=== PATIENT | female | born 1955 | race Caucasian/White ===

== ENCOUNTER → 2018-07-09 01:31 | Outpatient (CLI) | payer OTHER, SELFPAY ==
--- NOTE | 2018-07-09 16:28 | DI.REPORT_ITS ---
SYMPTOMS/DIAGNOSIS: SCREENING MAMMOGRAMS: Mammograms were interpreted according to the usual protocol including computer analysis with CAD system, tomosynthesis and C view imaging. The breast tissue is primarily of fatty radiodensity. There is no mass. There are no suspicious calcifications and there has been no significant interval change when compared with prior images. SUMMARY: No evidence of malignancy, category 1. Yearly screening mammography is recommended. Breast density category A. [facility] ASSESSMENT OF FINDINGS: Negative. Category 1. Patient will receive a letter notifying them of these results. BI-RAD category A. The breasts are almost entirely fatty.
== END ==
PROVIDERS: PCP Nurse Practitioner Primary Care; Visit Provider Nurse Practitioner Primary Care
DX: Z12.31 Encounter for screening mammogram for malignant neoplasm of breast (principal)
CPT/HCPCS: 77063; 77067

== ENCOUNTER → 2018-08-29 09:16 | Outpatient (BNVA) | payer OTHER, SELFPAY | PROVIDERS: Visit Provider Surgery | DX: R69 Illness, unspecified (principal) ==

== ENCOUNTER 2018-09-29 06:01 | Day surgery (SDC) | payer OTHER, SELFPAY ==
[2018-09-29 06:12] VITALS: BP 125/67; PULSE 78; RESP 18; TEMP 36.3; O2SAT 95
--- NOTE | 2018-09-29 06:36 | W.COLOREPORT ---
Colonoscopy Report Date of procedure: 09/29/18 Pre-op diagnosis general: Hx of polyps Post-op diagnosis procedure note: other (transverse polyp) Procedure: Colonoscopy with polypectomy by cold forceps Surgeon: Kristine Galindo Anesthesia proc note operative: MAC (Diana Canseco CRNA) Estimated blood loss (mL): 3 Pathology: other (transverse polyp) Complications: None Disposition: same day Indications: Mrs. Maravilla is a pleasant 63-year-old female who was seen in the office for a colonoscopy. She has a history of polyps. Risks, benefits, complications were reviewed with her and she wished to proceed. No guarantees were given or implied. Prep: Miralax/Dulcolax Procedure Start Time: 07:41 Procedure End Time: 08:06 Retraction Time: 15 minutes Findings: One flat polyp in the transverse polyp. Diverticulosis Procedure Description: After informed consent was obtained the patient was taken to the procedure room and placed in a left decubitous position. Monitors were applied and a time out was done. The patients name, date of , procedure, allergies to medications and metal in their body was reviewed. The patient was then sedated. Once sedated and comfortable a rectal exam was done. External exam was normal. Internal exam revealed a normal sphincter tone and no palpable masses. The scope was then introduced and retroflexed. No internal hemorrhoids were identified. The scope was then advanced to the cecum without difficulty. The TI and appendiceal orifice were identified. The prep was adequate. The scope was then slowly retracted over 15 minutes back into the rectum. There was one flat polyp in the transverse colon which was removed with cold forceps. The scope was removed and the patient was woken up and taken back to Same day surgery in stable condition. There were diverticula noted. The patient tolerated the procedure well and there were no immediate complications. Follow up: The patient should follow up in 3-5 years unless they develop changes in bowel habits or other new gastrointestinal complaints.
--- NOTE | 2018-09-29 06:49 | PDOC.DSDIS_ITS ---
Discharge Plan Disposition Patient Disposition: HOME Condition: Good Discharge Details Reason For Visit: SCREENING Attending Provider: Kristine Galindo Primary Care Provider: Iris Zhong Home Meds and New Rx's Prescriptions: Continue metoprolol succinate 50 MG tablet extended release 24 hr 50 mg PO DAILY RF: 0 cholecalciferol (vitamin D3) 1,000 UNIT capsule 1,000 unit PO DAILY RF: 0 fish oil-fat acid comb.[id number] [[place] 3-6-9] 1,200 MG capsule 1,200 mg PO DAILY RF: 0 acetaminophen [Acetaminophen Extra Strength] 500 MG tablet 1,000 mg PO PRN PRNRF: 0 metformin 500 MG tablet 250 mg PO BID RF: 0 meloxicam 15 MG tablet 15 mg PO DAILY RF: 0 gabapentin 300 MG capsule 300 mg PO HS RF: 0 hydrochlorothiazide 25 MG tablet 25 mg PO DAILY RF: 0 mineral oil [Mineral Oil Light] 25 ML oil 25 ml Topical BID PRNRF: 0 Discontinued polyethylene glycol 3350 17 gram powder in packet 255 g PO DAILY Qty: 15 RF: 0 bisacodyl [Dulcolax (bisacodyl)] 5 mg tablet,delayed release (DR/EC) 5 mg PO ONCE Qty: 4 RF: 0 Discharge Instructions Instructions: Colonoscopy (DC), Diverticulosis (DC) Additional Instructions: Findings: 1 polyp Diverticulosis Follow up: 3-5 years New Medications: none Please call if you develop: fevers >101.5 Nausea or Vomiting Abdominal pain that is not transient 1. Because there will be medication in your system for the next 24 hours, you may feel a little sleepy. Your coordination will be affected. Therefore: a. Do not drive or operate dangerous equipment for 24 hours. b. Do not drink alcohol beverages for 24 hours (not even beer). c. Plan to go home and rest for the day. 2. Generally there are no restrictions on your activity after a day or so has gone by, but you may feel a bit fatigued for a few days. 3 After you arrive home you may have a light meal and return to a normal diet as you can tolerate it without feeling sick to your stomach. 4. After surgery, you may feel pain or discomfort. This should be only transient , but if it persists please contact your doctor. 5. If there are any questions regarding the findings of your procedure, please feel free to contact your doctor. 6. If you are unable to contact your doctor with a problem, contact the hospital at [phone]. 7. Continue all your regular medications unless directed otherwise. I understand the above instructions and have no questions. Signature of Patient or Responsible Adult Escort Date/Time Name of Responsible Adult Escort Signature of Nurse Date/Time Stand Alone Forms: Ham Mendoza (MARCELU) Activity:: Activity as Tolerated Diet:: high fiber diet Discharge Orders Discharge Orders: Discharge Order (Routine); Ordered 09/29/18 Ordered By: Kristine Galindo DS: Diagnosis Discharge Diagnosis (1) Hx of adenomatous colonic polyps: Status: Acute (2) Diverticulosis: Status: Acute
[2018-09-29] MEDS: Lactated Ringers 1,000 ML 80 ML IV (06:51)
--- NOTE | 2018-09-29 07:23 | W.PM.HP.N ---
Assessment and Plan (1) Hx of adenomatous colonic polyps: Current visit: No Status: Acute P\\ Colonoscopy under sedation Risks, benefits and complications have been reviewed. Complications include but are not limited to bleeding, pain, perforation, missed small lesion/polyp, sore throat, aspiration and adverse reaction to the medications. Questions were entertained and answered to their satisfaction and they wished to proceed. No guarantees were given or implied. History of Present Illness Narrative: Details: Mrs. Maravilla is a pleasant 63 year old female who had a colonoscopy 3 years ago and was found to have a sessile serrated adenoma. She is here for another screening colonoscopy. She denies any changes in bowel habits, melena or hematochezia. She did have a fissure last November and started to use mineral oil and increased dietary fiber and has been able to heal the fissure without surgery. She has a known murmur. No new Cardiac complaints. She denies chest pain or SOB on exertion. Review of Systems Cardiovascular Reports system reviewed and no additional complaints, except as docu Respiratory Reports system reviewed and no additional complaints, except as docu PFSH Family History Sister Colon polyps Medical History Anal fissure (Resolved) Constipation Diabetes GERD (gastroesophageal reflux disease) HTN (hypertension) Hearing loss Heart murmur Low back pain Obesity Osteoarthritis Sleep apnea Spinal stenosis Squamous cell carcinoma Vitamin D deficiency Social History current occupational status: retired Smoking/Tobacco Use Status: Never alcohol intake: current alcohol intake frequency: a few times a month substance use type: does not use Surgical History H/O colonoscopy (Chronic ~2014) Meds Home Medications Medication Instructions Recorded Confirmed Type cholecalciferol (vitamin D3) 1,000 unit PO DAILY NS 05/22/13 09/29/18 History fish oil-fat acid comb.8-hb137 1,200 mg PO DAILY NS 05/22/13 09/29/18 History [[place] 3-6-9 1,200 Mg Softgel] metoprolol succinate 50 mg PO DAILY tab-cap NS 05/22/13 09/29/18 History acetaminophen [Acetaminophen Extra 1,000 mg PO PRN PRN 03/14/15 09/29/18 History Strength] gabapentin 300 mg PO HS 03/12/17 09/29/18 History hydrochlorothiazide 25 mg PO DAILY tab-cap 03/12/17 09/29/18 History meloxicam 15 mg PO DAILY tab-cap 03/12/17 09/29/18 History metformin 250 mg PO BID tab-cap 03/12/17 09/29/18 History mineral oil [Topical Light Mineral 25 ml TOPICAL BID PRN 10/02/17 09/29/18 History Oil] bisacodyl 5 mg tablet,delayed 5 mg PO ONCE #4 tab 08/29/18 09/29/18 Rx release polyethylene glycol 3350 17 gram 255 g PO DAILY #15 each 08/29/18 09/29/18 Rx oral powder packet Allergies Allergy/AdvReac Type Severity Reaction Status Date / Time adhesive tape AdvReac Mild Skin Rash Unverified 09/29/18 06:23 Horse serum Allergy Severe Anaphylaxsi Uncoded 09/29/18 06:22 s Exam Resp Effort & Inspection: normal respiratory effort Auscultation: clear to auscultation bilaterally Cardio Rate: regular rate Rhythm: regular rhythm Heart Sounds: no click, no gallops, no murmurs and no rubs Results Last Vital Signs Temp 97.3 F L 09/29/18 06:12 Pulse 78 09/29/18 06:12 Resp 18 09/29/18 06:12 BP 125/67 09/29/18 06:12 Pulse Ox 95 09/29/18 06:12
--- NOTE | 2018-09-29 07:57 | BOWEL_PTH ---
PATIENT: Yulissa Maravilla LOC: [facility] U#:[id number] AGE/SX: 63/F ROOM: RE09/29/[address]: Kristine Galindo MD : 1955 BED: DIS: 09/29/2018 SPEC #: [id number] RECD: 09/29/18 12:33 STATUS: MARQUIS REQ #: [id number] LINDA: 09/29/18 07:[address]: Kristine Galindo DEPT: Surgical Specimen RECD BY: Gaby Lazar ENTERED: 09/29/18 12:34 SP TYPE: Bowel OTHR DR: Iris Zhong Tissues: 1 - BIOPSY BOWEL Procedures: GROSS AND MICRO LEVEL 4 Comments: [id number]
[2018-09-29 08:40] VITALS: BP 99/48; PULSE 72; RESP 16; TEMP 36.5; O2SAT 94
== END 2018-09-29 09:05 | disposition home or self-care (01) ==
PROVIDERS: PCP Nurse Practitioner Primary Care; Visit Provider Surgery
PROC: 0DJD8ZZ Inspection of Lower Intestinal Tract, Via Natural or Artificial Opening Endoscopic (ICD-10-PCS; CPT 45378; principal; 2018-09-29 07:30)
DX: Z12.11 Encounter for screening for malignant neoplasm of colon (principal); D12.3 Benign neoplasm of transverse colon; Z86.010 Personal history of colon polyps; G47.33 Obstructive sleep apnea (adult) (pediatric); I10 Essential (primary) hypertension; E11.9 Type 2 diabetes mellitus without complications; Z79.84 Long term (current) use of oral hypoglycemic drugs
CPT/HCPCS: 45380; 88305; NC

== ENCOUNTER 2019-07-06 00:16 | Outpatient (CLI) | payer OTHER, SELFPAY ==
--- NOTE | 2019-07-06 17:11 | DI.MAMMO_ITS ---
SYMPTOM/DIAGNOSIS: SCREENING MAMMOGRAMS: Mammograms were interpreted according to the usual protocol including computer analysis with CAD system, tomosynthesis and C view imaging. Comparison is made with exams from [id number]. The breasts are composed of fatty density tissue, breast density, Category A. No suspicious masses or suspicious microcalcifications are seen. There has been no significant change. IMPRESSION: Category 1, negative mammogram. Yearly screening mammography is recommended. [facility] ASSESSMENT OF FINDINGS: Negative. Category 1. Patient will receive a letter notifying them of these results. BI-RAD category A. The breasts are almost entirely fatty.
== END 2019-07-06 00:36 ==
PROVIDERS: PCP Nurse Practitioner Primary Care; Visit Provider Nurse Practitioner Primary Care
DX: Z12.31 Encounter for screening mammogram for malignant neoplasm of breast (principal)
CPT/HCPCS: 77063; 77067

== ENCOUNTER 2020-02-24 01:30 | Outpatient (CLI) | payer OTHER, SELFPAY ==
--- NOTE | 2020-02-24 | DI.DEXA_ITS ---
EXAM: XR DEXA BONE DENSITY W/WO LUIS FERNANDO CLINICAL HISTORY: SCREENING FOR OSTEOPOROSIS,Z13.820,#[id number] COMPARISON: Prior examination dated 04/15/2003 FINDINGS: Lateral Spine Image: Unremarkable. No compression deformities identified. Posterior spinal surgery a t L4 and L5. Left hip: Total T-Score: 0.8 Total Z-Score: 2.1 T- and Z-scores: Within normal limits. This compares with a total T-score of 0.6 on the prior examina tion. Lumbar Spine: Total T-Score: 1.7 Total Z-Score: 3.5 T- and Z-scores: Within normal limits. This compares with a total T-score of 1.4 on the prior examina tion. IMPRESSION: No evidence of osteoporosis.
== END 2020-02-24 01:50 ==
PROVIDERS: PCP Nurse Practitioner Primary Care; Visit Provider Nurse Practitioner Primary Care
DX: Z13.820 Encounter for screening for osteoporosis (principal)
CPT/HCPCS: 77080

== ENCOUNTER 2020-07-29 04:09 | Outpatient (CLI) | payer OTHER, SELFPAY ==
--- NOTE | 2020-07-29 | DI.MAMMO_ITS ---
EXAM: MG MAMMO SCREENING CLINICAL HISTORY: SCREENING TECHNIQUE: Bilateral full field digital CC and MLO mammographic images were obtained with 3D tomosyn thesis and utilizing computer aided detection (CAD). COMPARISON: Available for comparison. FINDINGS: Masses/Architectural Distortion: None seen. Microcalcifications: No suspicious pleomorphic-type are seen. Skin Thickening/Nipple Retraction: None. IMPRESSION: 1. No significant interval change with no specific features of malignancy noted. 2. Unless there is more urgent need, screening mammography is recommended, as per [place] [employer] guidelines. BI-RADS Category 1 - Negative Breast Density - Category A - Almost entirely fatty A negative radiographic report should not delay biopsy if a dominant or clinically suspicious mass is present. Up to ten percent of cancers are not identified on mammography. A negative report may reinforce clinical impression. Adenosis and dense breasts may obscure an underlying neoplasm. False positive reports average 6 to 10%. Patient will receive a letter notifying them of these results.
== END 2020-07-29 04:29 ==
PROVIDERS: PCP Nurse Practitioner Primary Care; Visit Provider Nurse Practitioner Primary Care
DX: Z12.39 Encounter for other screening for malignant neoplasm of breast (principal)
CPT/HCPCS: 77063; 77067

== ENCOUNTER 2021-09-01 01:32 | Outpatient (CLI) | payer OTHER, SELFPAY ==
[2021-09-01 10:57] LABS: Source Nasal/Nares
[2021-09-01 13:36] LABS: COVID-19 PCR Negative (Negative)
== END 2021-09-01 01:33 | disposition home or self-care (01) ==
LOC: LBO 01:33
PROVIDERS: PCP Nurse Practitioner Primary Care; Visit Provider Surgery
DX: Z20.822 Contact with and (suspected) exposure to COVID-19 (principal); Z01.818 Encounter for other preprocedural examination
CPT/HCPCS: 87635

== ENCOUNTER 2021-09-04 06:08 | Day surgery (SDC) | payer OTHER, SELFPAY ==
--- NOTE | 2021-09-04 06:26 | W.COLOREPORT ---
Colonoscopy Report Date of procedure: 09/04/21 Pre-op diagnosis general: Hx of colon polyps Post-op diagnosis procedure note: same (and mild diverticulosis) Procedure: Colonoscopy with polypectomy Surgeon: Kristine Galindo Anesthesia Type: General:No Airway ([place] CRNA) Estimated blood loss (mL): 3 Pathology: other (cecal polyp, descending polyp) Complications: None Disposition: same day Indications: The patient is here for Colonoscopy pre-op. Her last screening was in 2018, which was sessile serrated adenoma. She has no family history of colon cancer. She has not had any bowel habit changes. -Discussed colonoscopy bowel prep as well as the procedure. Discussed possible complications of the procedure to include bleeding, pain, perforation, missed small lesion/polyp, sore throat, aspiration and adverse reaction to the medications. Questions were answered to patient?s satisfaction. No guarantees were implied or given. Prep: Miralax/Dulcolax Procedure Start Time: 07:28 Procedure End Time: 07:55 Retraction Time: 16 minutes Findings: 2 small polyps mild descending diverticulosis Procedure Description: After informed consent was obtained the patient was taken to the procedure room and placed in a left decubitous position. Monitors were applied and a time out was done. The patients name, date of , procedure, allergies to medications and metal in their body was reviewed. The patient was then sedated. Once sedated and comfortable a rectal exam was done. External exam was normal. Internal exam revealed a normal sphincter tone and no palpable masses. The scope was then introduced and retro-flexed. No internal hemorrhoids, polyps or masses were identified on retro-flexion. The scope was then advanced to the cecum without difficulty. The ileocecal vlave and appendiceal orifice were identified. The prep was good. The scope was then slowly retracted over 16 minutes back into the rectum. Polyps were removed with cold forceps in the cecum and descending colon x2. There was mild descending diverticulosis noted. The scope was removed and the patient was woken up and taken back to Same day surgery in stable condition. The patient tolerated the procedure well and there were no immediate complications. Follow up: The patient should follow up in 3-5 years unless they develop changes in bowel habits or other new gastrointestinal complaints.
--- NOTE | 2021-09-04 06:27 | PDOC.DSDIS_ITS ---
Discharge Plan Disposition Patient Disposition: HOME Condition: Good Discharge Details Reason For Visit: Colonoscopy Attending Provider: Kristine Galindo Primary Care Provider: Iris Zhong Home Meds and New Rx's Prescriptions: Continued cholecalciferol (vitamin D3) 1,000 UNIT capsule 1,000 unit PO DAILY RF: 0 [place] 3-6-9 Triple [place] 1,200 MG capsule 1,200 mg PO DAILY RF: 0 acetaminophen [Acetaminophen Extra Strength] 500 MG tablet 1,000 mg PO PRN PRNRF: 0 metformin 500 MG tablet 250 mg PO BID RF: 0 gabapentin 300 MG capsule 300 mg PO HS RF: 0 hydrochlorothiazide 25 MG tablet 25 mg PO DAILY RF: 0 ibuprofen 800 mg Tablet 800 mg PO PRNRF: 0 melatonin 5 mg Tablet 5 mg RF: 0 Discontinued bisacodyl [Dulcolax (bisacodyl)] 5 mg tablet,delayed release (DR/EC) 5 mg PO ONCE Qty: 4 RF: 0 polyethylene glycol 3350 17 gram/dose powder 238 g PO ONCE Qty: 238 RF: 0 Discharge Instructions Instructions: Diverticulosis (DC) Additional Instructions: Findings: 2 small polyps diverticulosis Follow up: 3-5 years Please call if you develop: fevers >101.5 Nausea or Vomiting Abdominal pain that is not transient Rectal bleeding that is more then a tbsp A hard abdomen and inability to pass gas DAY SURGERY UNIT POST ENDOSCOPY INSTRUCTIONS Instructions for everyone who is given Anesthesia: For your safety, please do the following for the next 24 Hours: a. Do not drive or operate dangerous equipment b. Do not drink alcohol beverages or use any recreational drugs for the first 24 hours or while taking pain medications. The medications in your body may have a reaction that can be dangerous. c. Do not make any important decisions or sign any important papers 1. Generally there are no restrictions on your activity after a day or so has gone by, but you may feel a bit fatigued for a few days. 2. After you arrive home you may have a light meal and return to a normal diet as you can tolerate it without feeling sick to your stomach. 3. After surgery, you may feel pain or discomfort. This should be only transient, but if it persists please contact your doctor. 4. If there are any questions regarding the findings of your procedure, please feel free to contact your doctor. 6. If you are unable to contact your doctor with a problem, contact the [facility] at [phone]. 3. Continue all your regular medications unless directed otherwise. I understand the above instructions and have no questions. Signature of Patient or Responsible Adult Escort Date/Time Name of Responsible Adult Escort Signature of Nurse Date/Time Activity:: Activity as Tolerated Diet:: High Fiber diet Discharge Orders Discharge Orders: Discharge Order (Routine); Ordered 09/04/21 Ordered By: Kristine Galindo
[2021-09-04 06:30] VITALS: BP 114/73; PULSE 89; RESP 18; TEMP 36.5; O2SAT 98
[2021-09-04] MEDS: Lactated Ringers 1,000 ML 80 ML IV (06:50)
--- NOTE | 2021-09-04 07:03 | ANES.PREOP_ITS ---
General Info Date of Service Date Performed: 09/04/21 Height: 5 ft 6 in Weight: 104.9 kg Body Mass Index (BMI): 37.3 Surgical Procedure: Operation Date: 09/04/21 07:35 Proposed Procedures Side Surgeon p Colonoscopy Kristine Galindo MD Meds Allergies and Home Medications Allergies Allergy/AdvReac Type Severity Reaction Status Date / Time adhesive tape AdvReac Mild Skin Rash Unverified 09/04/21 06:34 lisinopril AdvReac Other (See Verified 09/04/21 06:35 Comment) Horse serum Allergy Severe Anaphylaxsi Uncoded 09/04/21 06:34 s Home Medication Medication Instructions Recorded [place] 3-6-9 Triple [place] 1,200 mg PO DAILY NS 05/22/13 cholecalciferol (vitamin D3) 1,000 unit PO DAILY NS 05/22/13 acetaminophen [Acetaminophen Extra 1,000 mg PO PRN PRN 03/14/15 Strength] gabapentin 300 mg PO HS 03/12/17 hydrochlorothiazide 25 mg PO DAILY tab-cap 03/12/17 metformin 250 mg PO BID tab-cap 03/12/17 bisacodyl 5 mg tablet,delayed 5 mg PO ONCE #4 tab 08/17/21 release polyethylene glycol 3350 17 238 g PO ONCE #238 g 08/17/21 gram/dose oral powder ibuprofen 800 mg PO PRN 09/04/21 melatonin 5 mg 09/04/21 Current Visit Medications: Current Medications Generic Name Dose Route Start Last Admin Trade Name Freq PRN Reason Stop Dose Admin Hyoscyamine Sulfate 0.125 mg 09/04/21 06:27 Hyoscyamine 0.125 Mg Sl/Oral/Chew SL DIRECTED PRN Ringer's Solution 1,000 mls @ 80 mls/hr 09/04/21 06:00 IV 10/01/21 23:59 INFUSION [facility] IV Miscellaneous Supplies 1 each 09/04/21 06:00 Iv Access IV 10/01/21 23:59 DIRECTED [facility] Ondansetron HCl 4 mg 09/04/21 06:27 Ondansetron 4 Mg/2 Ml Vial IVP Q4H PRN PRN Nausea / Vomiting Sodium Chloride 0 ml 09/04/21 06:00 Normal Saline Flush 10 Ml Syr IV 10/01/21 23:59 PRN PRN Sodium Chloride 0 ml 09/04/21 06:00 Normal Saline 10 Ml Vial IJ 10/01/21 23:59 DIRECTED PRN Sterile Water 0 ml 09/04/21 06:00 Water,Injection,Sterile 10 Ml Vial IJ 10/01/21 23:59 DIRECTED PRN PFSH Active Problems Active Problems: Problem Status Onset Code Spinal stenosis, lumbar region, with neurogenic claudication M48.06 Hx of adenomatous colonic polyps Z86.010 Diverticulosis K57.90 Undiagnosed cardiac murmurs R01.1 Screening for colon cancer Z12.11 Medical History Medical History (Updated 09/04/21 @ 06:38 by Bekah Truong) Anal fissure Colonoscopy planned (~09/29/18) Constipation Diabetes GERD (gastroesophageal reflux disease) Hearing loss pt. questions this Heart murmur HTN (hypertension) Low back pain Obesity Osteoarthritis Screening for colon cancer Sleep apnea pt .uses bipap Spinal stenosis Squamous cell carcinoma Undiagnosed cardiac murmurs Vitamin D deficiency Surgical History Surgical History H/O colonoscopy (~2014) H/O cone biopsy of cervix History of surgery bilat eye lipd surgery 1995 History of wisdom tooth extraction 1977 Hx of laminectomy L4-L5 Status post laparoscopic Giovanni fundoplication 1998/ hiatal hernia repair Tobacco Smoking/Tobacco Use Status: Never Alcohol Alcohol Intake: current Alcohol intake frequency: a few times a month Alcohol type: wine Substance Use Substance use: Never Substance use type: does not use Details: alcohol: t-60 Vital Signs and Lab Results Vital Signs Most Recent Vital Signs in EMR: Most Recent Vital Signs Temp Pulse Resp BP Pulse Ox 36.5 C 89 18 114/73 98 09/04/21 06:30 09/04/21 06:30 09/04/21 06:30 09/04/21 06:30 09/04/21 06:30 Point of Care Results Point of Care Results: Finger Stick Blood Glucose 114 09/04/21 06:58 Lab Results Blood Type / Crossmatch: No Data to Display Complete Blood Count: No Data to Display Complete Metabolic Panel: No Data to Display Liver Function Panel: No Data to Display Coagulation Panel: No Data to Display Cardiac Panel: No Data to Display Arterial Blood Gas: No Data to Display Venous Blood Gas: No Data to Display Pancreas Panel: No Data to Display Thyroid Panel: No Data to Display Infectious Disease: Coronavirus (COVID-19)(PCR) Negative (Negative) 09/01/21 09:46 09/01/21 Coronavirus 2019 Source Nasal/Nares 09/01/21 09:46 09/01/21 Blood Cultures: No Data to Display Toxicology Panel: No Data to Display Anesthesia Assessment and Plan Anesthesia History Personal History: No History of Anesthesia Complications Family History: No Family History of Anesthesia Complications Exercise Tolerance Exercise Tolerance: Metabolic Equivalents>4 Pertinent Negatives Pertinent Negatives: No Symptoms of GERD (None since lap giovanni in 1998), No Major Cardiovascular Symptoms or Complaints, No Major Pulmonary Symptoms or Complaints and No History of CVA/TIA Cardiac & Pulmonary Exam Cardiac Exam: Normal S1/S2 Heart Sounds Pulmonary Exam: Clear Bilateral Breath Sounds Airway Exam Known Difficult Airway: No Mallampati Class: 2 Mouth Opening: Normal (> 3cm) Thyromental Distance: Greater than 3 cm Neck Range of Motion: Full ROM Neck Circumference: Normal Teeth Condition: Normal Dentition ASA Classification ASA Score: ASA 2 Emergency Case?: No NPO Status NPO Status: NPO Clears >2 hours, Solids >8 hours Anesthesia Plan Resuscitation Status: Full Code Anesthesia Technique: General Anesthesia Airway Planned: Natural Airway Monitors Used: Standard Monitors
[2021-09-04 07:12] VITALS: BMI 37.3
--- NOTE | 2021-09-04 07:40 | BOWEL_PTH ---
PATIENT: Yulissa Maravilla LOC: [facility] U#:[id number] AGE/SX: 66/F ROOM: RE09/04/[address]: Kristine Galindo MD : 1955 BED: DIS: 09/04/2021 SPEC #: [id number] RECD: 09/04/21 12:34 STATUS: MARQUIS REQ #: [id number] LINDA: 09/04/21 07:[address]: Kristine Galindo DEPT: Surgical Specimen RECD BY: Gaby Lazar ENTERED: 09/04/21 12:36 SP TYPE: Bowel OTHR DR: Iris Zhong Tissues: 1 - BIOPSY BOWEL 2 - BIOPSY BOWEL Procedures: GROSS AND MICRO LEVEL 4 Comments: [id number]
[2021-09-04 08:02] VITALS: BP 122/66; PULSE 78; RESP 16; TEMP 36.2; O2SAT 93
--- NOTE | 2021-09-04 08:12 | W.ANESPOSTOP ---
Postoperative Evaluation Date, Time and Location Date Performed: 09/04/21 Time Performed: 08:02 Patient Location: Day Surgery Unit Vital Signs Most Recent Imported Vital Signs: Most Recent Vital Signs Temp Pulse Resp BP Pulse Ox 36.2 C L 78 16 122/66 93 09/04/21 08:02 09/04/21 08:02 09/04/21 08:02 09/04/21 08:02 09/04/21 08:02 Pain Score Most Recent Pain Score: Most Recent Pain Score Pain Level 2 09/04/21 08:02 Assessment Mental Status: Awake (Alert & Oriented to Patient Baseline) Airway and Respiratory Function: Patent airway with normal (patient baseline) respiratory exam Cardiovascular Function: Hemodynamically Stable Hydration Status: Adequately Hydrated Nausea & Vomiting: No Nausea or Vomiting Pain: Pain is tolerable per patient Peripheral Nerve Block: Patient did not receive a nerve block Teaching Patient Teaching: Discussed the importance of using CPAP/BiPAP during any sleep period
[2021-09-04 08:27] VITALS: BP 132/73; PULSE 70; RESP 18; TEMP 36.1; O2SAT 96
== END 2021-09-04 08:50 | disposition home or self-care (01) ==
PROVIDERS: PCP Nurse Practitioner Primary Care; Visit Provider Surgery
PROC: 0DJD8ZZ Inspection of Lower Intestinal Tract, Via Natural or Artificial Opening Endoscopic (ICD-10-PCS; CPT 45378; principal; 2021-09-04 07:30)
DX: Z12.11 Encounter for screening for malignant neoplasm of colon (principal); Z86.010 Personal history of colon polyps; K57.30 Diverticulosis of large intestine without perforation or abscess without bleeding; K63.5 Polyp of colon
CPT/HCPCS: 45380; 88305; J2001

== ENCOUNTER 2021-12-27 08:20 | Outpatient (CLI) | payer MEDICARE, OTHER, SELFPAY ==
--- NOTE | 2021-12-27 08:00 | DI.RAD_ITS ---
Exam(s) XR KNEE RT 3V AP,LAT,BARB EXAM: XR KNEE RT 3V AP,LAT,BARB CLINICAL HISTORY: right knee pain. TECHNIQUE: 2D digital imaging was performed. COMPARISON: No exams were available for comparison FINDINGS: No evidence fracture or joint effusion. There are moderate degenerative changes in the medial compar tment with some joint space narrowing and marginal osteophytes. Lateral compartment appears unremark able. Mild degenerative changes in the patellofemoral compartment. No osseous lesions. Bone densit y appears normal. IMPRESSION: Degenerative changes, most evident in the medial compartment. No joint effusion noted DATA REPOSITORY: RADIATION DOSE DELIVERED:
== END 2021-12-27 08:21 | disposition home or self-care (01) ==
LOC: DIORS 08:20
PROVIDERS: PCP Nurse Practitioner Primary Care; Referring Provider Nurse Practitioner Primary Care; Visit Provider Student in an Organized Health Care Education/Training Program
DX: M25.561 Pain in right knee (principal); M17.11 Unilateral primary osteoarthritis, right knee; M76.31 Iliotibial band syndrome, right leg
CPT/HCPCS: 20610; 73562; 99214; J1040

== ENCOUNTER 2022-01-30 01:22 | Outpatient (CLI) | payer OTHER, SELFPAY ==
--- NOTE | 2022-01-30 | DI.MAMMO_ITS ---
Exam(s) MAMMO SCREENING EXAM: MAMMO SCREENING CLINICAL HISTORY: [id number], SCREENING, Z12.39 TECHNIQUE: Bilateral full field digital CC and MLO mammographic images were obtained with 3D tomosyn thesis and utilizing computer aided detection (CAD). COMPARISON: Available for comparison. FINDINGS: Masses/Architectural Distortion: None seen. Microcalcifications: No suspicious pleomorphic-type are seen. Skin Thickening/Nipple Retraction: None. IMPRESSION: 1. No significant interval change with no specific features of malignancy noted. 2. Unless there is more urgent need, screening mammography is recommended, as per [employer] guidelines. BI-RADS Category 1 - Negative Breast Density - Category A - Almost entirely fatty Breast density category C or D implies that the patient has dense breast tissue. Dense breast tissue is very common and is not abnormal but dense breast tissue can make it harder to find cancer on a ma mmogram. Also, dense breast tissue may increase their breast cancer risk. This information about the result of the mammogram report was provided to the patient to raise their awareness. Use this report when you speak with the patient about their risks for breast cancer, which includes their family hist ory. At that time, you may recommend for more screening tests (Ultrasound or MRI) as they might be us eful based on their risk. A negative radiographic report should not delay biopsy if a dominant or clinically suspicious mass is present. Up to ten percent of cancers are not identified on mammography. A negative report may reinforce clinical impression. Adenosis and dense breasts may obscure an underlying neoplasm. False positive reports average 6 to 10%. Patient will receive a letter notifying them of these results.
== END 2022-01-30 01:42 ==
PROVIDERS: PCP Nurse Practitioner Primary Care; Visit Provider Internal Medicine
DX: Z12.31 Encounter for screening mammogram for malignant neoplasm of breast (principal)
CPT/HCPCS: 77063; 77067

== ENCOUNTER 2023-07-03 02:04 | Outpatient (CLI) | payer OTHER, SELFPAY ==
--- NOTE | 2023-07-03 | DI.MAMMO_ITS ---
Exam(s) MAMMO SCREENING EXAM: MAMMO SCREENING CLINICAL HISTORY: SCREENING, Z12.29, [id number]. TECHNIQUE: Bilateral full field digital CC and MLO mammographic images were obtained with 3D tomosyn thesis and utilizing computer aided detection (CAD). COMPARISON: Prior mammograms were reviewed. FINDINGS: Fibroglandular tissue pattern is again noted to be predominately fatty. There are no new significant radiographic findings in the right breast. Small unchanged benign-appea ring anterior nodules again noted. Tiny posterior microcalcification group is also unchanged. In the left breast there is an oval slightly lobulated noncalcified nodular density measuring approxi mately 9 x 3 millimeters, located approximately 3 cm in from the nipple. It has slightly increased i n size from prior mammograms. There are no malignant-appearing microcalcification groups in this reg ion or elsewhere in either breast There is no significant architectural distortion nor skin thickening-retraction. IMPRESSION: 1. No radiographic evidence of malignancy in the right breast. 2. Left breast lobulated nodular density 3 cm in from the nipple. Spot compression view and ultrasou nd recommended. BI-RADS Category 0 - Assessment Incomplete: Need additional imaging evaluation Breast Density - Category A - Almost entirely fatty Breast density Category C or D implies that the patient has dense breast tissue. Dense breast tissue can make it harder to find cancer on a mammogram. Dense breast tissue is also associated with an incr eased risk of breast cancer. This information about the result of the mammogram report was provided to the patient to raise their awareness. Use this report when you speak with the patient about their risks for breast cancer, which includes their family history. At that time, you may recommend additional screening tests (Ultrasoun d or MRI) as these tests may add significant information. A negative radiographic report should not delay biopsy if a dominant or clinically suspicious mass is present. Up to ten percent of cancers are not identified on mammography. A negative report may reinforce clinical impression. Adenosis and dense breasts may obscure an underlying neoplasm. False positive reports average 6 to 10%. Patient will receive a letter notifying them of these results.
== END 2023-07-03 02:24 ==
PROVIDERS: PCP Nurse Practitioner Primary Care; Visit Provider Physician Assistant
DX: Z12.31 Encounter for screening mammogram for malignant neoplasm of breast (principal)
CPT/HCPCS: 77063; 77067

== ENCOUNTER → 2023-07-09 03:17 | Outpatient (CLI) | payer OTHER, SELFPAY ==
--- NOTE | 2023-07-09 14:22 | DI.MAMMO_ITS ---
Exam(s) MG MAMMO SCREEN CALL BACK UNI US BREAST LT LIMITED EXAM: MG MAMMO SCREEN CALL BACK UNI and U/S breast LT limited CLINICAL HISTORY: F/U MAMMO, LT BREAST LOBULATED NODULAR DENSITY, [id number]. TECHNIQUE: Craniocaudal and mediolateral oblique Full Field Digital Mammography views of the left br east with Computer Aided Diagnosis followed by Tomosynthesis and left breast ultrasound. COMPARISON: Comparison is made with prior examinations. FINDINGS: Mammography/Tomosynthesis: Masses/Architectural Distortion: The lobulated density in the retroareolar region of the left breast has a similar appearance compared to prior examinations. Microcalcifictions: No suspicious pleomorphic-type are seen. Skin Thickening/Nipple Retraction: None. Limited left breast US: Echotexture: Normal appearance of the glandular tissue. Shadowing: No suspicious foci. Cyst: None. Solid lesions: None seen. Ductal dilation: The area of concern corresponds to a duct at the 12 o'clock position of the left lesley ast. No suspicious cystic or solid lesions are seen. IMPRESSION: 1. No evidence of malignancy is noted. 2. Unless there is more urgent need, follow-up screening mammography is recommended, as per [employer] guidelines. 3. The findings were discussed with the patient on the date of the examination. BI-RADS Category 1 - Negative Breast Density - Category A - Almost entirely fatty Breast density Category C or D implies that the patient has dense breast tissue. Dense breast tissue can make it harder to find cancer on a mammogram. Dense breast tissue is also associated with an incr eased risk of breast cancer. This information about the result of the mammogram report was provided to the patient to raise their awareness. Use this report when you speak with the patient about their risks for breast cancer, which includes their family history. At that time, you may recommend additional screening tests (Ultrasoun d or MRI) as these tests may add significant information. A negative radiographic report should not delay biopsy if a dominant or clinically suspicious mass is present. Up to ten percent of cancers are not identified on mammography. A negative report may reinforce clinical impression. Adenosis and dense breasts may obscure an underlying neoplasm. False positive reports average 6 to 10%. Patient will receive a letter notifying them of these results.
== END ==
PROVIDERS: PCP Nurse Practitioner Primary Care; Visit Provider Physician Assistant
DX: Z12.31 Encounter for screening mammogram for malignant neoplasm of breast (principal); R92.8 Other abnormal and inconclusive findings on diagnostic imaging of breast
CPT/HCPCS: 76642; 77063; 77067

== ENCOUNTER 2023-12-03 02:36 | Outpatient (CLI) | payer MEDICARE, OTHER, SELFPAY ==
[2023-12-03 09:11] LABS: Basophils % 1.4; Eosinophils % 1.5; HCT 38.7 % (36.0-46.0); HGB 12.8 g/dL (11.2-15.7); Lymphocytes % 25.6; MCHC 33.1 % (32.0-36.0); MCV 94 fL (80-95); MPV 10.3 fL (8.0-11.0); Monocytes % 6.3; Neutrophils % 64.9; Platelet Count 211 10^3/uL (130-400); RBC 4.13 10^6/uL (3.93-5.22); RDW 12.3 % (11.7-14.6); RDW-SD 42.6 fL; WBC 6.63 10^3/uL (4.4-10.8)
[2023-12-03 09:12] LABS: Abs Immature Grans 0.02 10^3/uL (0.0-0.06); Absolute Basophil Count 0.09 10^3/uL (0.0-0.2); Absolute Monocyte Count 0.42 10^3/uL (0.1-0.8); Immature Grans % 0.3
[2023-12-03 09:34] LABS: ALT 35 U/L (14-59); AST 21 U/L (15-37); Albumin 3.5 g/dL (3.4-5.0); Alkaline Phosphatase 72 U/L (46-116); Anion Gap 7.7 mmol/L (3-11); BUN 31 mg/dL (7-18); Bilirubin, Total 0.4 mg/dL (0.2-1.0); CO2 30.3 mmol/L (21.0-32.0); Calcium 10.1 mg/dL (8.5-10.1); Chloride 101 mmol/L (98-107); Estimated GFR 60.98 (mL/min/1.73m2); FREE T4 0.89 ng/dL (0.76-1.46); Glucose 162 mg/dL (74-106); Potassium 3.9 mmol/L (3.5-5.1); Sodium 139 mmol/L (136-145); TSH 0.92 uIU/mL (0.36-3.74); Total Protein 7.9 g/dL (6.4-8.2)
[2023-12-03 10:13] LABS: Hemoglobin A1C 7.3 % (<5.7)
== END 2023-12-03 02:37 | disposition home or self-care (01) ==
PROVIDERS: PCP Nurse Practitioner Primary Care; Visit Provider Nurse Practitioner
DX: C43.61 Malignant melanoma of right upper limb, including shoulder (principal)
CPT/HCPCS: 36415; 80053; 83036; 84439; 84443; 85025

== ENCOUNTER 2023-12-24 03:34 | Outpatient (CLI) | payer MEDICARE, OTHER, SELFPAY ==
[2023-12-24 09:11] LABS: Abs Immature Grans 0.02 10^3/uL (0.0-0.06); Absolute Basophil Count 0.09 10^3/uL (0.0-0.2); Absolute Lymphocyte Count 2.03 10^3/uL (1.2-3.4); Absolute Monocyte Count 0.61 10^3/uL (0.1-0.8); Absolute Neutrophil Count 5.33 10^3/uL (1.2-6.7); Basophils % 1.1; Eosinophils % 1.2; HCT 40.2 % (36.0-46.0); HGB 13.6 g/dL (11.2-15.7); Immature Grans % 0.2; Lymphocytes % 24.8; MCH 31.3 pg (27.0-33.0); MCHC 33.8 % (32.0-36.0); MCV 93 fL (80-95); MPV 10.4 fL (8.0-11.0); Monocytes % 7.5; Neutrophils % 65.2; Platelet Count 211 10^3/uL (130-400); RBC 4.34 10^6/uL (3.93-5.22); RDW-SD 41.1 fL; WBC 8.18 10^3/uL (4.4-10.8)
[2023-12-24 09:31] LABS: Hemoglobin A1C 6.7 % (<5.7)
[2023-12-24 09:38] LABS: ALT 51 U/L (14-59); AST 33 U/L (15-37); Albumin 3.8 g/dL (3.4-5.0); Alkaline Phosphatase 63 U/L (46-116); Anion Gap 9.7 mmol/L (3-11); BUN 20 mg/dL (7-18); Bilirubin, Total 0.4 mg/dL (0.2-1.0); CO2 30.3 mmol/L (21.0-32.0); CREATININE 1.1 mg/dL (0.55-1.02); Chloride 99 mmol/L (98-107); Estimated GFR 54.39 (mL/min/1.73m2); FREE T4 0.99 ng/dL (0.76-1.46); Glucose 132 mg/dL (74-106); Potassium 3.6 mmol/L (3.5-5.1); Sodium 139 mmol/L (136-145); TSH 0.75 uIU/mL (0.36-3.74); Total Protein 8.2 g/dL (6.4-8.2)
== END 2023-12-24 03:35 | disposition home or self-care (01) ==
PROVIDERS: PCP Nurse Practitioner Primary Care; Visit Provider Nurse Practitioner
DX: C43.61 Malignant melanoma of right upper limb, including shoulder (principal); I10 Essential (primary) hypertension; E11.9 Type 2 diabetes mellitus without complications; Z79.899 Other long term (current) drug therapy
CPT/HCPCS: 36415; 80053; 83036; 84439; 84443; 85025

== ENCOUNTER 2024-02-03 05:14 | Outpatient (CLI) | payer MEDICARE, OTHER, SELFPAY ==
[2024-02-03 09:16] LABS: Abs Immature Grans 0.04 10^3/uL (0.0-0.06); Absolute Basophil Count 0.09 10^3/uL (0.0-0.2); Absolute Eosinophil Count 0.08 10^3/uL (0.0-0.7); Absolute Lymphocyte Count 2.41 10^3/uL (1.2-3.4); Absolute Monocyte Count 0.67 10^3/uL (0.1-0.8); Absolute Neutrophil Count 5.23 10^3/uL (1.2-6.7); Basophils % 1.1; Eosinophils % 0.9; HCT 38.9 % (36.0-46.0); HGB 13.3 g/dL (11.2-15.7); Immature Grans % 0.5; Lymphocytes % 28.3; MCH 31.1 pg (27.0-33.0); MCHC 34.2 % (32.0-36.0); MCV 91 fL (80-95); MPV 10.9 fL (8.0-11.0); Monocytes % 7.9; Neutrophils % 61.3; Platelet Count 225 10^3/uL (130-400); RBC 4.27 10^6/uL (3.93-5.22); RDW 11.9 % (11.7-14.6); RDW-SD 39.4 fL; WBC 8.52 10^3/uL (4.4-10.8)
[2024-02-03 09:40] LABS: Hemoglobin A1C 6.3 % (<5.7)
[2024-02-03 09:55] LABS: ALT 32 U/L (14-59); AST 25 U/L (15-37); Albumin 3.7 g/dL (3.4-5.0); Alkaline Phosphatase 65 U/L (46-116); Anion Gap 9.7 mmol/L (3-11); BUN 17 mg/dL (7-18); Bilirubin, Total 0.5 mg/dL (0.2-1.0); CO2 30.3 mmol/L (21.0-32.0); Calcium 9.8 mg/dL (8.5-10.1); Chloride 98 mmol/L (98-107); Estimated GFR 60.98 (mL/min/1.73m2); FREE T4 1.04 ng/dL (0.76-1.46); Glucose 109 mg/dL (74-106); Potassium 3.6 mmol/L (3.5-5.1); Sodium 138 mmol/L (136-145); TSH 1.32 uIU/Ml (0.36-3.74); Total Protein 7.9 g/dL (6.4-8.2)
== END 2024-02-03 05:15 | disposition home or self-care (01) ==
PROVIDERS: PCP Nurse Practitioner Primary Care; Visit Provider Nurse Practitioner
DX: C43.61 Malignant melanoma of right upper limb, including shoulder (principal)
CPT/HCPCS: 36415; 80053; 83036; 84439; 84443; 85025

== ENCOUNTER 2024-03-16 05:50 | Outpatient (CLI) | payer MEDICARE, OTHER, SELFPAY ==
[2024-03-16 09:24] LABS: Abs Immature Grans 0.03 10^3/uL (0.0-0.06); Absolute Basophil Count 0.14 10^3/uL (0.0-0.2); Absolute Eosinophil Count 1.67 10^3/uL (0.0-0.7); Absolute Lymphocyte Count 2.81 10^3/uL (1.2-3.4); Absolute Monocyte Count 0.75 10^3/uL (0.1-0.8); Absolute Neutrophil Count 5.32 10^3/uL (1.2-6.7); Basophils % 1.3; Eosinophils % 15.6; HCT 41.3 % (36.0-46.0); HGB 13.9 g/dL (11.2-15.7); Immature Grans % 0.3; Lymphocytes % 26.2; MCH 30.9 pg (27.0-33.0); MCHC 33.7 % (32.0-36.0); MCV 92 fL (80-95); MPV 10.8 fL (8.0-11.0); Neutrophils % 49.6; Platelet Count 220 10^3/uL (130-400); RDW 12.3 % (11.7-14.6); RDW-SD 41.1 fL; WBC 10.72 10^3/uL (4.4-10.8)
[2024-03-16 09:59] LABS: ALT 36 U/L (14-59); AST 26 U/L (15-37); Albumin 3.8 g/dL (3.4-5.0); Alkaline Phosphatase 73 U/L (46-116); Anion Gap 9.8 mmol/L (3-11); BUN 22 mg/dL (7-18); Bilirubin, Total 0.4 mg/dL (0.2-1.0); CO2 31.2 mmol/L (21.0-32.0); Calcium 9.9 mg/dL (8.5-10.1); Chloride 100 mmol/L (98-107); Estimated GFR 60.98 (mL/min/1.73m2); FREE T4 0.99 ng/dL (0.76-1.46); Glucose 69 mg/dL (74-106); Potassium 3.7 mmol/L (3.5-5.1); Sodium 141 mmol/L (136-145); TSH 1.29 uIU/Ml (0.36-3.74); Total Protein 8.2 g/dL (6.4-8.2)
== END 2024-03-16 05:51 | disposition home or self-care (01) ==
PROVIDERS: PCP Nurse Practitioner Primary Care; Visit Provider Nurse Practitioner
DX: C43.61 Malignant melanoma of right upper limb, including shoulder (principal)
CPT/HCPCS: 36415; 80053; 83036; 84439; 84443; 85025

== ENCOUNTER 2024-04-10 02:38 | Outpatient (CLI) | payer MEDICARE, OTHER, SELFPAY ==
[2024-04-10 08:35] LABS: Abs Immature Grans 0.02 10^3/uL (0.0-0.06); Absolute Basophil Count 0.11 10^3/uL (0.0-0.2); Absolute Eosinophil Count 0.49 10^3/uL (0.0-0.7); Absolute Lymphocyte Count 2.21 10^3/uL (1.2-3.4); Absolute Monocyte Count 0.57 10^3/uL (0.1-0.8); Absolute Neutrophil Count 4.19 10^3/uL (1.2-6.7); Basophils % 1.4 %; Eosinophils % 6.5 %; HGB 13.3 g/dL (11.2-15.7); Immature Grans % 0.3 %; Lymphocytes % 29.1 %; MCH 31.5 pg (27.0-33.0); MCHC 33.3 % (32.0-36.0); MCV 95 fL (80-95); MPV 10.3 fL (8.0-11.0); Monocytes % 7.5 %; Neutrophils % 55.2 %; Platelet Count 220 10^3/uL (130-400); RBC 4.22 10^6/uL (3.93-5.22); RDW 12.6 % (11.7-14.6); RDW-SD 43.7 fL; WBC 7.59 10^3/uL (4.4-10.8)
== END 2024-04-10 02:39 | disposition home or self-care (01) ==
PROVIDERS: PCP Nurse Practitioner Primary Care; Visit Provider Nurse Practitioner
DX: C43.61 Malignant melanoma of right upper limb, including shoulder (principal)
CPT/HCPCS: 36415; 85025

== ENCOUNTER → 2024-04-28 00:27 | Outpatient (CLI) | payer MEDICARE, OTHER, SELFPAY ==
--- NOTE | 2024-04-28 12:01 | DI.US_ITS ---
Exam(s) US PELVIS TRANSVAGINAL EXAM: US PELVIS TRANSVAGINAL CLINICAL HISTORY: New hypodense extension in endometrial cavity on CT 04/20/24;. TECHNIQUE: Transabdominal and transvaginal pelvic ultrasound was performed using standard protocol. COMPARISON: The CT scan was not made available at this time of interpretation. FINDINGS: UTERUS: Position: Anteverted. Size: 5.4 long by 3.1 AP by 3.8 transverse cm Endometrium: 1.3 cm. The endometrial stripe is thickened and heterogeneous. There are some cystic ch anges seen within the endometrial stripe. No increased blood flow is seen. Myometrium: Unremarkable. Cervix: Unremarkable. OVARIES: Right: 2.4 x 1.5 x 2.1 cm Cyst or mass: No suspicious cystic or solid masses. Left: 1.4 x 0.8 x 1.4 cm Cyst or mass: No suspicious cystic or solid masses. DOPPLER: Color: Symmetric and uniform flow to both ovaries. CUL-DE-SAC: Free fluid: None. Other: None. IMPRESSION: 1. Heterogeneous 1.3 cm endometrium. Neoplasm should be excluded. Gynecologic consult is recommende d. 2. Unremarkable bilateral ovaries. DATA REPOSITORY:
== END ==
PROVIDERS: PCP Nurse Practitioner Primary Care; Visit Provider Nurse Practitioner
DX: C76.41 Malignant neoplasm of right upper limb (principal)
CPT/HCPCS: 76830; 76856

== ENCOUNTER 2024-05-14 16:04 | Outpatient (REF) | payer MEDICARE, OTHER, SELFPAY ==
--- NOTE | 2024-05-14 15:35 | ENDOMET_PTH ---
PATIENT: Yulissa Maravilla LOC: [facility] U#:[id number] AGE/SX: 68/F ROOM: RE05/14/[address]: Selena Cruz MD : [id number] BED: DIS: 05/14/2024 SPEC #: [id number] RECD: 05/14/24 17:52 STATUS: MARQUIS REFelicia #: [id number] LINDA: 05/14/24 15:[address]: Selena Cruz DEPT: Surgical Specimen RECD BY: Gaby Lazar ENTERED: 05/14/24 17:53 SP TYPE: Endomet OTHR DR: Iris Zhong Tissues: 1 - ENDOMETRIUM BX/KEVON Procedures: GROSS AND MICRO LEVEL 4 Comments: [id number]
== END 2024-05-14 16:05 | disposition home or self-care (01) ==
LOC: LBN 16:04
PROVIDERS: PCP Nurse Practitioner Primary Care; Visit Provider Obstetrics & Gynecology
DX: N85.01 Benign endometrial hyperplasia (principal)
CPT/HCPCS: 88305

== ENCOUNTER 2024-06-01 04:22 | Outpatient (CLI) | payer MEDICARE, OTHER, SELFPAY ==
[2024-06-01 08:10] LABS: Abs Immature Grans 0.02 10^3/uL (0.0-0.06); Absolute Basophil Count 0.07 10^3/uL (0.0-0.2); Absolute Eosinophil Count 0.09 10^3/uL (0.0-0.7); Absolute Lymphocyte Count 2.01 10^3/uL (1.2-3.4); Absolute Monocyte Count 0.55 10^3/uL (0.1-0.8); Absolute Neutrophil Count 4.49 10^3/uL (1.2-6.7); Eosinophils % 1.2 %; HGB 12.6 g/dL (11.2-15.7); Immature Grans % 0.3 %; Lymphocytes % 27.8 %; MCH 31.3 pg (27.0-33.0); MCHC 33.2 % (32.0-36.0); MCV 94 fL (80-95); MPV 10.6 fL (8.0-11.0); Monocytes % 7.6 %; Neutrophils % 62.1 %; Platelet Count 199 10^3/uL (130-400); RBC 4.03 10^6/uL (3.93-5.22); RDW 12.3 % (11.7-14.6); RDW-SD 43.1 fL; WBC 7.23 10^3/uL (4.4-10.8)
[2024-06-01 08:34] LABS: ALT 29 U/L (14-59); AST 25 U/L (15-37); Albumin 3.5 g/dL (3.4-5.0); Alkaline Phosphatase 63 U/L (46-116); Anion Gap 7.9 mmol/L (3-11); BUN 13 mg/dL (7-18); Bilirubin, Total 0.39 mg/dL (0.2-1.0); CO2 29.1 mmol/L (21.0-32.0); Calcium 9.2 mg/dL (8.5-10.1); Chloride 103 mmol/L (98-107); Estimated GFR 60.98 (mL/min/1.73m2); FREE T4 0.91 ng/dL (0.76-1.46); Glucose 98 mg/dL (74-106); Potassium 3.9 mmol/L (3.5-5.1); Sodium 140 mmol/L (136-145); TSH 1.03 uIU/Ml (0.36-3.74); Total Protein 7.5 g/dL (6.4-8.2)
== END 2024-06-01 04:23 | disposition home or self-care (01) ==
PROVIDERS: PCP Nurse Practitioner Primary Care; Visit Provider Nurse Practitioner
DX: C43.61 Malignant melanoma of right upper limb, including shoulder (principal)
CPT/HCPCS: 36415; 80053; 84439; 84443; 85025

== ENCOUNTER 2024-07-13 02:41 | Outpatient (CLI) | payer OTHER, SELFPAY ==
--- NOTE | 2024-07-13 | DI.MAMMO_ITS ---
Exam(s) MAMMO SCREENING EXAM: MAMMO SCREENING CLINICAL HISTORY: SCREENING, [id number] TECHNIQUE: Bilateral full field digital CC and MLO mammographic images were obtained with 3D tomosyn thesis and utilizing computer aided detection (CAD). COMPARISON: Available for comparison. FINDINGS: Masses/Architectural Distortion: None seen. Microcalcifications: No suspicious pleomorphic-type are seen. Skin Thickening/Nipple Retraction: None. IMPRESSION: 1. No significant interval change with no specific features of malignancy noted. 2. Unless there is more urgent need, screening mammography is recommended, as per [employer] guidelines. BI-RADS Category 1 - Negative Breast Density - Category A - Almost entirely fatty Breast density category C or D implies that the patient has dense breast tissue. Dense breast tissue is very common and is not abnormal but dense breast tissue can make it harder to find cancer on a ma mmogram. Also, dense breast tissue may increase their breast cancer risk. This information about the result of the mammogram report was provided to the patient to raise their awareness. Use this report when you speak with the patient about their risks for breast cancer, which includes their family hist ory. At that time, you may recommend for more screening tests (Ultrasound or MRI) as they might be us eful based on their risk. A negative radiographic report should not delay biopsy if a dominant or clinically suspicious mass is present. Up to ten percent of cancers are not identified on mammography. A negative report may reinforce clinical impression. Adenosis and dense breasts may obscure an underlying neoplasm. False positive reports average 6 to 10%. Patient will receive a letter notifying them of these results.
--- NOTE | 2024-07-13 | DI.DEXA_ITS ---
Exam(s) XR DEXA BONE DENSITY W/WO LUIS FERNANDO EXAM: XR DEXA BONE DENSITY W/WO LUIS FERNANDO CLINICAL HISTORY: SCREEN FOR OSTEOPOROSIS, Z13.820,[id number] TECHNIQUE: COMPARISON: CR XR DEXA BONE DENSITY W/WO LUIS FERNANDO from 02/24/2020 FINDINGS: Lateral Spine Image: Posterior spinal rods at L4 and L5 are again seen. Left hip: Total T-Score: 1.0. This compares to 0.8 on the prior examination. Total Z-Score: 2.5 T- and Z-scores: Within normal limits. Lumbar Spine: Total T-Score: 2.6. This compares to 1.7 on the prior examination. Total Z-Score: 4.6 T- and Z-scores: Within normal limits. IMPRESSION: No evidence of osteoporosis.
== END 2024-07-13 03:01 ==
PROVIDERS: PCP Nurse Practitioner Primary Care; Visit Provider Physician Assistant
DX: Z12.31 Encounter for screening mammogram for malignant neoplasm of breast (principal); Z13.820 Encounter for screening for osteoporosis
CPT/HCPCS: 77063; 77067; 77080

== ENCOUNTER 2024-08-31 03:00 | Outpatient (CLI) | payer MEDICARE, OTHER, SELFPAY ==
[2024-08-31 08:54] LABS: Abs Immature Grans 0.02 10^3/uL (0.0-0.06); Absolute Basophil Count 0.06 10^3/uL (0.0-0.2); Absolute Eosinophil Count 0.09 10^3/uL (0.0-0.7); Absolute Lymphocyte Count 1.56 10^3/uL (1.2-3.4); Absolute Monocyte Count 0.45 10^3/uL (0.1-0.8); Basophils % 0.9 %; Eosinophils % 1.3 %; HCT 36.5 % (36.0-46.0); HGB 12.1 g/dL (11.2-15.7); Immature Grans % 0.3 %; Lymphocytes % 22.7 %; MCH 31.2 pg (27.0-33.0); MCHC 33.2 % (32.0-36.0); MCV 94 fL (80-95); MPV 11.3 fL (8.0-11.0); Monocytes % 6.5 %; Neutrophils % 68.3 %; Platelet Count 172 10^3/uL (130-400); RBC 3.88 10^6/uL (3.93-5.22); RDW 12.8 % (11.7-14.6); RDW-SD 44.1 fL; WBC 6.88 10^3/uL (4.4-10.8)
[2024-08-31 09:20] LABS: ALT 24 U/L (14-59); AST 20 U/L (15-37); Albumin 3.1 g/dL (3.4-5.0); Alkaline Phosphatase 69 U/L (46-116); BUN 23 mg/dL (7-18); Bilirubin, Total 0.55 mg/dL (0.2-1.0); Calcium 9.3 mg/dL (8.5-10.1); Chloride 101 mmol/L (98-107); Estimated GFR 60.61 (mL/min/1.73m2); FREE T4 0.84 ng/dL (0.76-1.46); Glucose 129 mg/dL (74-106); Potassium 3.8 mmol/L (3.5-5.1); Sodium 136 mmol/L (136-145); TSH 1.11 uIU/Ml (0.36-3.74); Total Protein 7.3 g/dL (6.4-8.2)
== END 2024-08-31 03:01 | disposition home or self-care (01) ==
PROVIDERS: PCP Nurse Practitioner Primary Care; Visit Provider Nurse Practitioner
DX: C43.61 Malignant melanoma of right upper limb, including shoulder (principal)
CPT/HCPCS: 36415; 80053; 84439; 84443; 85025

== ENCOUNTER 2024-09-25 15:33 | Emergency (ER) | payer MEDICARE, OTHER, SELFPAY ==
[2024-09-25 15:56] VITALS: BP 152/82; PULSE 85; RESP 14; TEMP 36.6; O2SAT 98
--- NOTE | 2024-09-25 16:00 | DI.RAD_ITS ---
Exam(s) XR LUMBAR SPINE COMPLETE EXAM: XR LUMBAR SPINE COMPLETE CLINICAL HISTORY: Back pain. TECHNIQUE: 2D digital imaging was performed of the lumbar spine. Six images were obtained. AP, lat eral, right oblique, left oblique and L5-S1 spot views were obtained. COMPARISON: CR SPINE LUMBOSACRAL MIN 2 VIEWS from 07/16/2012 CR XR DEXA BONE DENSITY W/WO LUIS FERNANDO from 07/13/2024 FINDINGS: BONES: No fracture or destructive lesion. Endplate osteophytes are seen at multiple levels of the lum bar spine, particularly at L3-L4. Degenerative changes of the facets are seen at multiple levels of t he lumbar spine. Posterior spinal surgery is seen at L4-L5. DISKS: There is disc space narrowing at T12-L1 and L5-S1. ALIGNMENT: Grade 1 anterolisthesis of L4 on L5 is present. SOFT TISSUE: Normal. IMPRESSION: Moderate degenerative changes are seen in the lumbar spine. No acute fracture or subluxation. DATA REPOSITORY: RADIATION DOSE DELIVERED:
--- NOTE | 2024-09-25 16:16 | ED.GENADUL_ITS ---
Discharge Plan Disposition Patient Disposition: Home Condition: Stable Discharge Details Clinical Impression: Lumbago Primary Care Provider: Karlee Osborne ED Provider: Quiana Mccain Home Meds and New Rx's Prescriptions: New prednisone 50 mg tablet 50 mg PO DAILY 5 Days Qty: 5 0RF Rx Instructions: Take 1 tablet daily for the next 5 days lidocaine 5 % adhesive patch,medicated 1 patch topical DAILY Qty: 15 0RF Rx Instructions: leave on most painful area for up to 12 hrs cyclobenzaprine 10 mg tablet 10 mg PO TID PRN (Reason: muscle spasm) Qty: 10 0RF No Action acetaminophen 650 mg tablet extended release 1,300 mg PO Q12H PRN loratadine [Allergy Relief (loratadine)] 10 mg tablet 10 mg PO DAILY PRN magnesium 200 mg tablet 400 mg PO DAILY loperamide-simethicone 2-125 mg tablet 1 tab PO Q2H PRN Rx Instructions: do not exceed 4 tabs in 24 hrs Pepto-Bismol 262 mg tablet 524 mg PO Q1H PRN Rx Instructions: do not exceed 8 doses in a 24 hour period senna 8.6 mg capsule 8.6 mg PO BID Patient Comments: 05/14/24- pt takes 1-2 caps PRN pembrolizumab 25 mg/mL solution 200 mg IV Q3W Rx Instructions: administer over 30 mins pembrolizumab 50 mg recon soln 400 mg IV Q6W Patient Comments: 05/14/24- Pt reports taking through 09/2024. First 4 doses 200 mg q3 weeks no side effects > increased dose and interval. Prescribed by Sandra Casas MD, [facility] On[facility]. Rx Instructions: administer over 30 mins cholecalciferol (vitamin D3) 1,000 UNIT capsule 1,000 unit PO DAILY Marsteller 3-6-9 Triple Marsteller 1,200 MG capsule 1,200 mg PO DAILY metformin 500 MG tablet 250 mg PO BID gabapentin 300 MG capsule 300 mg PO HS hydrochlorothiazide 25 MG tablet 25 mg PO DAILY ibuprofen 800 mg Tablet 800 mg PO Q8H PRN melatonin 5 mg Tablet 5 mg PO HS Discharge Instructions Instructions: Managing acute pain at home, Low Back Pain ED Additional Instructions: Please take the medications as prescribed. Alternate ice and heat. Consider chiropractor or massage. X-rays show degenerative changes, hardware is intact, no acute fracture or broken bones or dislocation noted of the spine. Follow up with primary care provider in 3-5 days. Return to ED sooner if any worsening pain, loss of bowel or bladder control, numbness or tingling in your groin or rectal area or concerns. Please take Tylenol or Ibuprofen with food every 4-6 hours as needed for pain and swelling. Referrals: Karlee Osborne [Primary Care Provider] - 2 weeks Discharge Data Discharge Date/Time-TO BE ENTERED AT DEPARTURE: 09/25/24 17:35 HPI General Mode of arrival: ambulatory . Date/Time Provider Initiated Documentation: 09/25/24 15:58 . Limitations to Documentation: no limitations . Information obtained by: patient, RN notes reviewed and old records reviewed . HPI Narrative: 69 year old female presents to the ER with cc of right lower lumbar pain and spasm x 2 days. Patient states she has been gardening and lifting and now pain worse. Denies saddle anesthesia, loss of bowel or bladder control, radiation of pain or other associated symptoms. Does have a history of Lumbar spine surgery in [address] Has been taking Tylenol and Ibuprofen with some relief. Related Data Home Medications ?Medication ?Instructions ?Recorded ?Confirmed Marsteller 3-6-9 Triple Marsteller 1,200 mg 1,200 mg PO DAILY 05/22/13 09/25/24 (400 [id number]) capsule (fish oil-fat acid [id number]) cholecalciferol (vitamin D3) 25 1,000 unit PO DAILY 05/22/13 09/25/24 mcg (1,000 unit) capsule gabapentin 300 mg capsule 300 mg PO HS 03/12/17 09/25/24 hydrochlorothiazide 25 mg tablet 25 mg PO DAILY 03/12/17 09/25/24 metformin 500 mg tablet 250 mg PO BID 03/12/17 09/25/24 ibuprofen 800 mg tablet 800 mg PO Q8H PRN 09/04/21 09/25/24 melatonin 5 mg tablet 5 mg PO HS 09/04/21 09/25/24 acetaminophen 650 mg 1,300 mg PO Q12H PRN 05/14/24 09/25/24 tablet,extended release bismuth subsalicylate 262 mg 524 mg PO Q1H PRN 05/14/24 09/25/24 tablet (Pepto-Bismol) loperamide 2 mg-simethicone 125 mg 1 tab PO Q2H PRN 05/14/24 09/25/24 tablet loratadine 10 mg tablet (Allergy 10 mg PO DAILY PRN 05/14/24 09/25/24 Relief (loratadine)) magnesium 200 mg tablet 400 mg PO DAILY 05/14/24 09/25/24 pembrolizumab 25 mg/mL intravenous 200 mg IV Q3W 05/14/24 05/14/24 solution pembrolizumab 50 mg intravenous 400 mg IV Q6W 05/14/24 05/14/24 solution sennosides 8.6 mg capsule (senna) 8.6 mg PO BID 05/14/24 09/25/24 cyclobenzaprine 10 mg tablet 10 mg PO TID PRN muscle spasm #10 09/25/24 tabs lidocaine 5 % topical patch 1 patch topical DAILY #15 ea 09/25/24 prednisone 50 mg tablet 50 mg PO DAILY Inflammation 5 days 09/25/24 #5 tabs Previous Rx's ?Medication ?Instructions ?Recorded cyclobenzaprine 10 mg tablet 10 mg PO TID PRN muscle spasm #10 09/25/24 tabs lidocaine 5 % topical patch 1 patch topical DAILY #15 ea 09/25/24 prednisone 50 mg tablet 50 mg PO DAILY Inflammation 5 days 09/25/24 #5 tabs Allergies Allergy/AdvReac Type Severity Reaction Status Date / Time adhesive tape AdvReac Mild Skin Rash Unverified 09/25/24 15:58 lisinopril AdvReac Other (See Verified 09/25/24 15:58 Comment) Horse serum Allergy Severe Anaphylaxsi Uncoded 09/25/24 15:58 s General Stated Complaint: Nk/Back Pain DEEP: 4 Review of Systems Genitourinary Genitourinary: Denies dyspareunia and Denies urinary incontinence Musculoskeletal Musculoskeletal: Reports as per HPI, Reports back pain, Denies numbness, Denies radiating pain into limb, Reports stiffness and Denies tingling Neurologic Neurologic: Denies numbness and Denies tingling Exam Narrative Exam Narrative: Constitutional: Alert and oriented x3. Appears stated age. Normal body habitus. Head: Normocephalic, no trauma. Resp: Lungs clear to auscultation bilaterally, no wheezes, rales, or rhonchi. Abdomen: Soft, non-distended, Normoactive bowel sounds all 4 quads. Musculoskeletal: Stiff gait, does have some right lower paraspinous tenderness with palpation.. Skin: No suspicious rashes or lesions. Capillary refill less than 2 sec. Neurologic: Cranial nerves II-XII intact. Alert and oriented x 3. Motor: No deficits noted. Sensory: Intact bilaterally all 4 extremities. Hematologic/Lymphatic: No ecchymosis, no lymphadenopathy. Back/Spine/Pelvis Thoracic/Lumbar Spine: paraspinal tenderness (Right) Course Vital Signs Vital signs: Vital Signs Temperature 36.6 C 09/25/24 15:56 Pulse 85 09/25/24 15:56 Respiratory Rate 14 09/25/24 15:56 Blood Pressure 152/82 H 09/25/24 15:56 Pulse Oximetry 98 09/25/24 15:56 Temperature 36.6 C 09/25/24 15:56 Temperature Source Skin 09/25/24 15:56 Pulse 85 09/25/24 15:56 Respiratory Rate 14 09/25/24 15:56 Blood Pressure 152/82 H 09/25/24 15:56 Blood Pressure Position Sitting 09/25/24 15:56 Pulse Oximetry 98 09/25/24 15:56 Oxygen Delivery Method Room Air 09/25/24 15:56 Oxygen Flow Rate 0 09/25/24 15:56 Pain Level 8 09/25/24 15:56 Medical Decision Making 69 year old female presents to the ER with cc of right lower lumbar pain and spasm x 2 days. Patient states she has been gardening and lifting and now pain worse. Denies saddle anesthesia, loss of bowel or bladder control, radiation of pain or other associated symptoms. Does have a history of Lumbar spine surgery in [address] Has been taking Tylenol and Ibuprofen with some relief. XR L spine ordered, Lidocaine patch, Prednisone and Flexeril. X-ray shows moderate degenerative changes in the lumbar spine, no acute fracture or subluxation. There is some disc space narrowing. And grade 1 anterior listhesis on L4 and L5 is present. Will discharge patient home with prednisone, lidocaine patches and Flexeril. No signs of cauda equina or discopathy or any serious concerns at this time I do feel the patient is appropriate to be discharged home. This text was generated using [employer] system, please disregard any oddities of phrase or misspellings. Quality:SDOH Health Related Social Needs: No Data to Display PFSH All Active Problems (Updated 09/25/24 @ 17:21 by Quiana Mccain NP) Lumbago (Acute) Thickened endometrium (Acute) Iliotibial band syndrome affecting right lower leg (Acute) Osteoarthritis of right knee (Acute) Depo Medrol--12/27/21 Spinal stenosis, lumbar region, with neurogenic claudication (Chronic) Diverticulosis (Acute) Undiagnosed cardiac murmurs (Acute) Medical History Metastatic melanoma July- august of 2023, removal at [facility] on right forarm. Also had basal cell CA and Squamous cell CA with single right axillary node involvement (stage 3C) Hx of adenomatous colonic polyps Anal fissure Obesity Vitamin D deficiency Constipation HTN (hypertension) GERD (gastroesophageal reflux disease) Spinal stenosis Osteoarthritis Heart murmur Squamous cell carcinoma Hearing loss pt. questions this Sleep apnea pt .uses bipap Low back pain Surgical History H/O blepharoplasty pt reports upper lid in 04/1996 History of colonoscopy (~09/2021) Hx of laminectomy L4-L5 History of wisdom tooth extraction 1977 History of surgery bilat eye lipd surgery 1995 H/O cone biopsy of cervix x2 in the 70/80s Status post laparoscopic Erika fundoplication 1998/ hiatal hernia repair H/O colonoscopy (~2014) Family History Sister Colon polyps Osteoporosis Mother Hypertension Heart disease Graves disease Osteoporosis Paternal Grandfather Diabetes Brother Hyperlipidemia Hypertension Paternal Uncle Stroke Paternal Aunt Stroke Social History Smoking/Tobacco Use Status: Never Smoking risk assessment performed?: Yes Alcohol Intake: current Alcohol Intake frequency: a few times a month Alcohol type: wine Drug use: Never Substance use type: does not use Details: alcohol: t-60 Do you feel safe at home: Yes Do you feel safe in your relationship?: Yes
[2024-09-25] MEDS: predniSONE 20 MG TAB 60 MG PO (17:34)
[2024-09-25] MEDS: Lidocaine 5% Patch 1 PATCH TP (17:34)
[2024-09-25] MEDS: Cyclobenzaprine 10 MG TAB PO (17:34)
== END 2024-09-25 17:35 | disposition home or self-care (01) ==
PROVIDERS: Emergency Provider Registered Nurse Emergency; PCP Physician Assistant
DX: M54.50 Low back pain, unspecified (principal); I10 Essential (primary) hypertension
CPT/HCPCS: 99283; 72110; J7512

== ENCOUNTER 2025-05-31 01:24 | Outpatient (CLI) | payer MEDICARE, OTHER, SELFPAY ==
--- NOTE | 2025-05-31 06:45 | DI.US_ITS ---
Exam(s) US PELVIS TRANSVAGINAL EXAM: US PELVIS TRANSVAGINAL CLINICAL HISTORY: abnormal finding on imaging,thickened endometrium,r93.89 TECHNIQUE: Transabdominal and transvaginal imaging was performed using standard protocol. COMPARISON: CT CT CHEST ABD PELVIS W LEB from 04/20/2024 FINDINGS: Transabdominal images are limited by patient body habitus and lack of urinary bladder distention. UTERUS: Anteverted. 4.8 x 3.1 x 4.1 cm Endometrium: 10-12 mm , thickened and heterogeneous. Myometrium: Unremarkable. Cervix: Unremarkable. OVARIES: Right: Cyst or mass: None. Left: Cyst or mass: None. DOPPLER: Color: Symmetric and uniform flow to both ovaries. No hyperemia. CUL-DE-SAC: Free fluid: None. IMPRESSION: 1. Thickened, heterogeneous endometrium. 2. Unremarkable bilateral ovaries. DATA REPOSITORY:
== END 2025-05-31 01:44 ==
LOC: DI 01:24
PROVIDERS: PCP Physician Assistant; Visit Provider Obstetrics & Gynecology
DX: R93.89 Abnormal findings on diagnostic imaging of other specified body structures (principal)
CPT/HCPCS: 76830; 76856

== ENCOUNTER 2025-07-15 01:42 | Outpatient (CLI) | payer OTHER, SELFPAY ==
--- NOTE | 2025-07-15 | DI.MAMMO_ITS ---
Exam(s) MAMMO SCREENING EXAM: MAMMO SCREENING CLINICAL HISTORY: Screening, Z12.31; auth #[id number] TECHNIQUE: Mammograms were interpreted according to the usual protocol including computer analysis with CAD system, tomosynthesis and C-view imaging. COMPARISON: 2014 through 2023 FINDINGS: The breasts are composed of mainly fatty density , Breast Density category A. No suspicious masses or suspicious microcalcifications are seen. No skin thickening or abnormal axillary lymph nodes are seen. There has been no significant change from prior exams. IMPRESSION: BI-RADS Category 1, Negative mammogram Yearly screening mammography is recommended. Breast Density- Category A - The breast are almost entirely fatty. Breast density Category C or D implies that the patient has dense breast tissue. Dense breast tissue can make it harder to find cancer on a mammogram. Dense breast tissue is also associated with an increased risk of breast cancer. This information about the result of the mammogram report was provided to the patient to raise their awareness. Use this report when you speak with the patient about their risks for breast cancer, which includes their family history. At that time, you may recommend additional screening tests (Ultrasound or MRI) as these tests may add significant information. A negative radiographic report should not delay biopsy if a dominant or clinically suspicious mass is present. Up to ten percent of cancers are not identified on mammography. A negative report may reinforce clinical impression. Adenosis and dense breasts may obscure an underlying neoplasm. False positive reports average 6 to 10%. Patient will receive a letter notifying them of these results.
== END 2025-07-15 02:02 ==
LOC: DI 01:43
PROVIDERS: PCP Physician Assistant; Visit Provider Physician Assistant
DX: Z12.31 Encounter for screening mammogram for malignant neoplasm of breast (principal); R92.313 Mammographic fatty tissue density, bilateral breasts
CPT/HCPCS: 77063; 77067

== ENCOUNTER 2025-07-28 07:06 | Day surgery (SDC) | payer MEDICARE, OTHER, SELFPAY ==
[2025-07-28 07:28] VITALS: BP 149/64; PULSE 75; RESP 14; TEMP 36.4; O2SAT 97
--- NOTE | 2025-07-28 07:41 | W.ANESPRE ---
General Info Date of Service Date Performed: 07/28/25 Height: 5 ft 6 in Weight: 108.9 kg Body Mass Index (BMI): 38.7 Surgical Procedure: Operation Date: 07/28/25 08:40 Proposed Procedure Side Surgeon p Dilation & Curettage with Hysteroscopy Selena Cruz MD Meds Allergies and Home Medications Allergies Allergy/AdvReac Type Severity Reaction Status Date / Time adhesive tape AdvReac Mild Skin Rash Verified 07/28/25 07:35 lisinopril AdvReac Other (See Verified 07/28/25 07:35 Comment) Horse serum Allergy Severe Anaphylaxsi Uncoded 07/28/25 07:35 s Home Medication ?Medication ?Instructions ?Recorded Wallace 3-6-9 Triple Wallace 1,200 mg 1,200 mg PO DAILY 05/22/13 (400 [id number]) capsule (fish oil-fat acid [id number]) cholecalciferol (vitamin D3) 25 1,000 unit PO DAILY 05/22/13 mcg (1,000 unit) capsule gabapentin 300 mg capsule 300 mg PO HS 03/12/17 hydrochlorothiazide 25 mg tablet 25 mg PO DAILY 03/12/17 ibuprofen 800 mg tablet 800 mg PO Q8H PRN 09/04/21 acetaminophen 650 mg 1,300 mg PO Q12H PRN 05/14/24 tablet,extended release magnesium 200 mg tablet 400 mg PO DAILY 05/14/24 diclofenac sodium 1 % topical gel 1 applic topical DIRECTED Pain 05/05/25 & swelling rt thumb base metformin 500 mg tablet 500 mg PO BID 05/05/25 Current Visit Medications: Current Medications Generic Name Dose Route Start Last Admin Trade Name Quyen PRN Reason Stop Dose Admin Ringer's Solution 1,000 mls @ 125 mls/hr 07/28/25 06:00 IV 07/28/25 23:59 INFUSION KENNEY IV Miscellaneous Supplies 1 each 07/28/25 06:00 Iv Access IV 07/28/25 23:59 DIRECTED KENNEY Sodium Chloride 0 ml 07/28/25 06:00 Normal Saline Flush 10 Ml Syr IV 07/28/25 23:59 PRN PRN Sodium Chloride 0 ml 07/28/25 06:00 Normal Saline 10 Ml Vial IJ 07/28/25 23:59 DIRECTED PRN Sterile Water 0 ml 07/28/25 06:00 Water,Injection,Sterile 10 Ml Vial IJ 07/28/25 23:59 DIRECTED PRN PFSH Active Problems Active Problems: Problem Status Onset Code Thickened endometrium Acute R93.89 Iliotibial band syndrome affecting right lower leg Acute M76.31 Osteoarthritis of right knee Acute M17.11 Diverticulosis Acute K57.90 Spinal stenosis, lumbar region, with neurogenic claudication Chronic M48.06 Medical History Medical History VALERIA (obstructive sleep apnea) on CPAP Diabetes mellitus Metastatic melanoma July- august of 2023, removal at [facility] [place] on right forarm. Also had basal cell CA and Squamous cell CA with single right axillary node involvement (stage 3C) Hx of adenomatous colonic polyps Anal fissure Obesity Vitamin D deficiency Constipation HTN (hypertension) GERD (gastroesophageal reflux disease) Osteoarthritis Heart murmur Squamous cell carcinoma Hearing loss pt. questions this Low back pain Surgical History Surgical History H/O blepharoplasty pt reports upper lid in 04/1996 History of colonoscopy (~09/2021) Hx of laminectomy L4-L5 History of wisdom tooth extraction 1977 H/O cone biopsy of cervix x2 in the 70/80s Status post laparoscopic Erika fundoplication 1998/ hiatal hernia repair Tobacco Smoking/Tobacco Use Status: Never Passive smoking exposure: Yes Alcohol Alcohol Intake: current Alcohol intake frequency: holidays/special occasions only Alcohol type: wine Substance Use Substance use: Never Substance use type: does not use Vital Signs and Lab Results Vital Signs Most Recent Vital Signs in EMR: Most Recent Vital Signs Temp Pulse Resp BP Pulse Ox 36.4 C L 75 14 149/64 H 97 07/28/25 07:28 07/28/25 07:28 07/28/25 07:28 07/28/25 07:28 07/28/25 07:28 Anesthesia Assessment and Plan Anesthesia History Personal History: No History of Anesthesia Complications Family History: No Family History of Anesthesia Complications Exercise Tolerance Exercise Tolerance: Metabolic Equivalents>4 Cardiac & Pulmonary Exam Cardiac Exam: Normal S1/S2 Heart Sounds Pulmonary Exam: Clear Bilateral Breath Sounds Implantable Cardiac Device Does patient have a Pacemaker or an ICD?: No Airway Exam Known Difficult Airway: No Mallampati Class: 2 Mouth Opening: Normal (> 3cm) Thyromental Distance: Greater than 3 cm Neck Range of Motion: Full ROM Neck Circumference: Normal Teeth Condition: Normal Dentition ASA Classification ASA Score: ASA 2 Emergency Case?: No NPO Status NPO Status: NPO Clears >2 hours, Solids >8 hours Anesthesia Plan Resuscitation Status: Full Code Anesthesia Technique: General Anesthesia Airway Planned: Natural Airway Monitors Used: Standard Monitors Preoperative Comments:: 70 yo for hysteroscopy d/c. Sig PMHx: HTN (HCTZ), VALERIA, GERD (s/p Nissin, no longer an issues), lumbar stenosis (s/p lami), c spine stenosis (gets numbness in arm and hands occ), DM (metformin). never smoker. Previous Anes: - colo x 2, prop, natural airway, no issues.
[2025-07-28] MEDS: Lactated Ringers 1,000 ML 125 ML IV (07:44)
[2025-07-28 07:48] VITALS: BMI 38.7
[2025-07-28] MEDS: Bupivacaine 0.25% Pres-Free W/EPI 30 ML VIAL (09:28)
[2025-07-28] MEDS: Silver Nitrate Stick 1 EACH (09:46)
--- NOTE | 2025-07-28 09:47 | ENDOMET_PTH ---
PATIENT: Yulissa Maravilla LOC: [facility] U#:[id number] AGE/SX: 70/F ROOM: RE07/28/[address]: Selena Cruz MD : 1955 BED: DIS: 07/28/2025 SPEC #: [id number] RECD: 07/28/25 11:57 STATUS: MARQUIS REFelicia #: [id number] LINDA: 07/28/25 09:[address]: Selena Cruz DEPT: Surgical Specimen RECD BY: Gaby Lazar ENTERED: 07/28/25 11:57 SP TYPE: Endomet OTHR DR: Karlee Osborne Tissues: 1 - ENDOMETRIUM BX/KEVON Procedures: GROSS AND MICRO LEVEL 4 Comments: [id number]
[2025-07-28 10:02] VITALS: BP 162/78; PULSE 77; RESP 14; TEMP 36; O2SAT 96
--- NOTE | 2025-07-28 10:03 | W.PM.DSUDISC ---
Date of service: 07/28/25 Discharge Plan Disposition Patient Disposition: Home Discharge Details Attending Provider: Selena Cruz Primary Care Provider: Karlee Osborne Home Meds and New Rx's Prescriptions: No Action acetaminophen 650 mg tablet extended release 1,300 mg PO Q12H PRN magnesium 200 mg tablet 400 mg PO DAILY diclofenac sodium 1 % gel 1 applic topical DIRECTED cholecalciferol (vitamin D3) 1,000 UNIT capsule 1,000 unit PO DAILY [place] 3-6-9 Triple [place] 1,200 MG capsule 1,200 mg PO DAILY gabapentin 300 MG capsule 300 mg PO HS hydrochlorothiazide 25 MG tablet 25 mg PO DAILY metformin 500 mg tablet 500 mg PO BID ibuprofen 800 mg Tablet 800 mg PO Q8H PRN Discharge Instructions Stand Alone Forms: Anesthesia Discharge Inst., Ham Mendoza ([facility]) Referrals: Selena Cruz MD [ [facility] STAFF PHYSICIAN, Obstetrics] - 08/10/25 11:40 am Activity:: nothing per vagina Discharge Orders Discharge Orders: Discharge Order (Routine); Ordered 07/28/25 Ordered By: Selena Cruz
--- NOTE | 2025-07-28 10:04 | W.PM.OP ---
Operative Note Operative Note PRE-OP DIAGNOSIS: thickened endometrium POST-OP DIAGNOSIS: other (endometrial polyp) PROCEDURE: hysteroscopy, dilation and curettage, polypectomy SURGEON: Selena Cruz Refer to Anesthesia Record ESTIMATED BLOOD LOSS: 0 COMPLICATIONS: None Patient was transported to: same day Patient's condition: stable Indications: 70yo with incidental finding of a thickened endometrium last year. Benign endometrial biopsy. Repeat imaging this summer shows the endometrium is still thickened at 10-12mm so she opted for definitive diagnosis and treatment via D&C, hysteroscopy. Findings: Large endometrial polyp Procedure Description: After informed consent was signed the patient was taken to the operating room and given General room air anesthesia. SCDs were placed on her legs. She was prepped and draped in the dorsal lithotomy position in the [facility]. A time out was performed. Her bladder was drained of urine if not done immediately prior to entrance to the OR. Exam under anesthesia revealed normal external genitalia, vagina normal for age and a normal sized uterus. A speculum was placed into the vagina to reveal the cervix. The anterior lip of the cervix was grasped with a single tooth tenaculum. A paracervical block was given with 10ml of 0.25% marcaine with epinephrine. The cervix was dilated. The hysteroscope was assembled and inserted into the uterine cavity. A large polyp was visualized. The myosure device was assembled and used to remove the polyp under direct visualization. The hysteroscopy was removed from the uterine cavity. The tenaculum was removed from the cervix with good hemostasis. The speculum was removed from the vagina. There was a small abrasion at the posterior vaginal introitus. The bleeding was stopped with silver nitrate. The patient was placed back into the supine position. She was moved to the stretcher and taken to the recovery room in stable condition. Date of Procedure: 07/28/25
--- NOTE | 2025-07-28 10:17 | W.ANESPOSTOP ---
Postoperative Evaluation Date, Time and Location Date Performed: 07/28/25 Time Performed: 10:10 Patient Location: Day Surgery Unit Vital Signs Most Recent Imported Vital Signs: Most Recent Vital Signs Temp Pulse Resp BP Pulse Ox 36 C L 77 14 162/78 H 96 07/28/25 10:02 07/28/25 10:02 07/28/25 10:02 07/28/25 10:02 07/28/25 10:02 Pain Score Most Recent Pain Score: Most Recent Pain Score Pain Level 4 07/28/25 10:02 Assessment Mental Status: Awake (Alert & Oriented to Patient Baseline) Airway and Respiratory Function: Patent airway with normal (patient baseline) respiratory exam Cardiovascular Function: Hemodynamically Stable Hydration Status: Adequately Hydrated Nausea & Vomiting: No Nausea or Vomiting Pain: Pain is tolerable per patient Peripheral Nerve Block: Patient did not receive a nerve block
[2025-07-28] MEDS: Ibuprofen 600 MG TAB PO (10:22)
[2025-07-28 10:26] VITALS: BP 169/90; PULSE 67; RESP 16; TEMP 36.1; O2SAT 98
== END 2025-07-28 11:05 | disposition home or self-care (01) ==
LOC: SUR 07:06
PROVIDERS: PCP Physician Assistant; Visit Provider Obstetrics & Gynecology
PROC: 0UDB8ZZ Extraction of Endometrium, Via Natural or Artificial Opening Endoscopic (ICD-10-PCS; CPT 58558; principal; 2025-07-28 08:30)
DX: R93.89 Abnormal findings on diagnostic imaging of other specified body structures (principal); N84.0 Polyp of corpus uteri
CPT/HCPCS: 58558; 88305; J2003; J2704; J3010

== ENCOUNTER → 2025-10-20 02:05 | Outpatient (CLI) | payer OTHER, SELFPAY ==
--- NOTE | 2025-10-20 09:14 | DI.RAD_ITS ---
Exam(s) XR LUMBAR SPINE COMPLETE EXAM: XR LUMBAR SPINE COMPLETE CLINICAL HISTORY: H/O SPINAL STENOSIS,[id number],SQUAMOUS CELL SKIN CA AND MELANOMA,,M54.50. TECHNIQUE: 2D digital imaging was performed. Five views. COMPARISON: CR XR LUMBAR SPINE COMPLETE from 09/25/2024 FINDINGS: BONES: No fracture or destructive lesion. Vertebral body heights are maintained. Multilevel endplate osteophytes are present. Posterior fusion hardware is again noted at L4-5. Stable alignment. Facet degenerative changes are noted throughout, greatest at L5-S1. DISKS: There is severe narrowing as well as endplate osteophytes involving the L5-S1 disc space. There is mild narrowing of the L3-4 disc space. There is is narrowing of the posterior disc spaces at L1-2 and L2-3 which appear to have worsened when compared with the previous exam. SOFT TISSUE: Normal. IMPRESSION: Stable appearance of posterior fusion at L4-5. Stable severe degenerative disc changes at L5-S1. Some interval worsening of degenerative disc changes at L 1 2 and L2-3. DATA REPOSITORY: RADIATION DOSE DELIVERED:
== END ==
PROVIDERS: PCP Physician Assistant; Visit Provider Physician Assistant
DX: M54.50 Low back pain, unspecified (principal); M51.370 Other intervertebral disc degeneration, lumbosacral region with discogenic back pain only
CPT/HCPCS: 72110

== ENCOUNTER 2025-11-17 13:02 | Outpatient (CLI) | payer MEDICARE, OTHER, SELFPAY ==
[2025-11-17 14:42] LABS: Abs Immature Grans 0.02 10^3/uL (0.0-0.06); HCT 37.9 % (36.0-46.0); HGB 12.8 g/dL (11.2-15.7); Immature Grans % 0.3 %; MCH 31.7 pg (27.0-33.0); MCHC 33.8 % (32.0-36.0); MCV 94 fL (80-95); MPV 10.7 fL (8.0-11.0); Platelet Count 209 10^3/uL (130-400); RBC 4.04 10^6/uL (3.93-5.22); RDW 12.2 % (11.7-14.6); RDW-SD 42.5 fL; WBC 7.17 10^3/uL (4.4-10.8)
[2025-11-17 15:33] LABS: C-Reactive Protein 0.51 mg/dL (<=0.50)
[2025-11-17 15:37] LABS: ALT 40 U/L (10-49); AST 41 U/L (<34); Albumin 4.7 g/dL (3.2-5.0); Alkaline Phosphatase 72 U/L (46-116); Anion Gap 9.9 mmol/L (3-11); BUN 20 mg/dL (9-23); Bilirubin, Total 0.4 mg/dL (0.2-1.2); CO2 30.6 mmol/L (20.0-31.0); Calcium 10.1 mg/dL (8.3-10.6); Chloride 98 mmol/L (98-107); Glucose 178 mg/dL (74-106); Potassium 3.6 mmol/L (3.5-5.1); Sodium 138 mmol/L (136-145); Total Protein 8.0 g/dL (5.7-8.2)
[2025-11-17 15:40] LABS: Creatine Kinase 177 U/L (34-145)
== END 2025-11-17 13:03 | disposition home or self-care (01) ==
LOC: LBO 13:04
PROVIDERS: PCP Physician Assistant; Visit Provider Nurse Practitioner
DX: C43.61 Malignant melanoma of right upper limb, including shoulder (principal); Z79.899 Other long term (current) drug therapy
CPT/HCPCS: 36415; 80053; 82550; 85025; 86038; 86140; 86431